=== PATIENT | male | born 1990 | race Hispanic/Latino ===

== ENCOUNTER 2018-08-28 01:45 | Emergency (ER) | payer SELFPAY ==
[2018-08-28 01:53] VITALS: BP 125/77; PULSE 56; RESP 16; TEMP 97.5; O2SAT 99
--- NOTE | 2018-08-28 02:05 | ED PDOC ---
HPI: General Adult Time Seen by Provider: 08/28/18 01:54 Chief Complaint (Nursing): Psychiatric Evaluation Chief Complaint (Provider): clearance for incarceration History Per: Patient History/Exam Limitations: no limitations Additional Complaint(s): 27 y/o male here in transit police custody for medical and psychiatric clearance for incarceration. Patient requesting food. Denies acute medical or psychiatric complaints Past Medical History Reviewed: Historical Data, Nursing Documentation, Vital Signs Vital Signs: Last Vital Signs Temp 97.5 F L 08/28/18 01:50 Pulse 56 L 08/28/18 01:50 Resp 16 08/28/18 01:50 BP 125/77 08/28/18 01:50 Pulse Ox 99 08/28/18 01:50 - Medical History PMH: Bipolar Disorder - Surgical History Surgical History: No Surg Hx - Family History Family History: States: No Known Family Hx - Social History Alcohol: Occasional Drugs: Cocaine, Opiates - Allergies Allergies/Adverse Reactions: Allergies Allergy/AdvReac Type Severity Reaction Status Date / Time No Known Allergies Allergy Verified 08/28/18 01:53 Review of Systems ROS Statement: Except As Marked, All Systems Reviewed And Found Negative Physical Exam - Reviewed Nursing Documentation Reviewed: Yes Vital Signs Reviewed: Yes - Physical Exam Appears: Positive for: Well, Non-toxic, No Acute Distress Head Exam: Positive for: ATRAUMATIC, NORMAL INSPECTION, NORMOCEPHALIC Skin: Positive for: Normal Color Eye Exam: Positive for: Normal appearance ENT: Positive for: Normal ENT Inspection Cardiovascular/Chest: Positive for: Regular Rate, Rhythm Respiratory: Positive for: Normal Breath Sounds Gastrointestinal/Abdominal: Positive for: Normal Exam Back: Positive for: Normal Inspection Extremity: Positive for: Normal ROM Neurologic/Psych: Positive for: Alert, Oriented (x3) - ECG O2 Sat by Pulse Oximetry: 99 - Progress ED Course And Treament: 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 Malik Disposition - Clinical Impression Clinical Impression: Substance abuse - Patient ED Disposition Is Patient to be Admitted: No Counseled Patient/Family Regarding: Studies Performed, Diagnosis, Need For Followup - Disposition Disposition: Discharged/Transfer to Law Enforcement Disposition Time: 02:23 Condition: STABLE Additional Instructions: Patient medically and psychiatrically cleared for incarceration Instructions: Polysubstance Abuse
== END 2018-08-28 02:57 | disposition home or self-care (01) ==
LOC: H.ER 01:45
DX: F31.9 Bipolar disorder, unspecified (principal)